=== PATIENT | male | born 1945 | race Caucasian/White ===

== ENCOUNTER → 2020-08-19 | Outpatient (CLI) | payer MEDICARE, BC ==
[~2020-08-19] MED LIST: AMANTADINE100 M1 PO; CARBIDOPA-LEVO1 EAC5 PO; CLONAZEPAM 0.50.5 M1 PO; DERMACINRX5000 UNI1 PO; DOXYCYCLINE HYC20 MG PO; FLONASE 0.05%50 MCG NARES; LEXAPRO20 MG PO; METHYLPHENIDATE PO; MIRALAX119 GM PO; OMEPRAZOLE20 M1 PO; PERCOCET 5-3251 EACH PO; PROPRANOLOL 1010 M1 PO; RASAGILINE MESYL1 MG PO; ROSUVASTATIN CA20 MG PO; SALAGEN5 MG PO; SYSTANE BALANCE10 ML EA. EYE; TRAZODONE HCL100 MG PO
== END ==
LOC: M.PC 10:44 → EDSEX 11:30 → M.PC 11:30
PROVIDERS: ATTEND Anesthesiology Pain Medicine
DX: G89.29 Other chronic pain (principal); M54.12 Radiculopathy, cervical region; M54.81 Occipital neuralgia; K92.9 Disease of digestive system, unspecified; F98.9 Unspecified behavioral and emotional disorders with onset usually occurring in childhood and adolescence; I11.9 Hypertensive heart disease without heart failure; C61 Malignant neoplasm of prostate; M35.01 Sjogren syndrome with keratoconjunctivitis; F32.9 Major depressive disorder, single episode, unspecified; F41.1 Generalized anxiety disorder; E78.00 Pure hypercholesterolemia, unspecified; Z95.5 Presence of coronary angioplasty implant and graft; Z68.22 Body mass index [BMI] 22.0-22.9, adult; Z88.8 Allergy status to other drugs, medicaments and biological substances; Z79.891 Long term (current) use of opiate analgesic; Z79.899 Other long term (current) drug therapy